=== PATIENT | female | born 1975 | race Caucasian/White ===

== ENCOUNTER 2024-01-21 19:24 | Emergency (ER) | payer SELFPAY ==
[~2024-01-21] VITALS: Ht 165.1 cm; Wt 72.0 kg
[2024-01-21 19:25] VITALS: O2SAT 97
[2024-01-21 20:19] LABS: CHLORIDE 104 mEq/L (98-107); POTASSIUM 3.7 mEq/L (3.5-5.1); SODIUM 141 mEq/L (136-145)
[2024-01-21 20:20] LABS: CARBON DIOXIDE 24 mEq/L (21-32)
[2024-01-21 20:21] LABS: CALCIUM 10.2 mg/dL (8.7-10.4)
[2024-01-21 20:25] LABS: CREATININE 0.6 mg/dL (0.6-1.0); GLUCOSE 218 mg/dL (70-105)
[2024-01-21 20:29] LABS: TROPONIN I HIGH SENSITIVITY < 4 ng/L (3.0-34); UREA NITROGEN BLOOD < 5 mg/dL (9-23)
[2024-01-21 20:32] LABS: BASOPHILS % 0.2 % (0.0-2.0); DIFFERENTIAL COMMENT 0; EOSINOPHILS % 1.1 % (0.0-5.0); HEMATOCRIT. 37.8 % (36.0-48.0); HEMOGLOBIN. 11.9 g/dL (12.0-16.0); LYMPHOCYTES % 50.4 % (20.0-50.0); MEAN CORPUSCULAR HEMOGLOBIN 24.1 pg (28.0-32.0); MEAN CORPUSCULAR HGB CONC 31.6 g/dL (31.0-37.0); MEAN CORPUSCULAR VOLUME 76.4 fL (81.0-99.0); MEAN PLATELET VOLUME 7.8 fl (7.4-10.4); MONOCYTES % 4.7 % (2.0-8.0); NEUTROPHILS % 43.6 % (40.0-76.0); PLATELET 374 x1000/uL (130-400); RED BLOOD CELL COUNT 4.95 mill/uL (4.2-5.4); RED CELL DISTRIBUTION WIDTH 18.8 % (11.6-14.6); WHITE BLOOD COUNT 8.3 x1000/uL (4.5-11.0)
[2024-01-21 20:35] LABS: ETHANOL BLOOD 341 mg/dL (<10)
[2024-01-21 20:53] LABS: HCG SCREEN NEGATIVE
[2024-01-21 21:56] VITALS: BP 128/77; PULSE 98; RESP 22; TEMP 37.00296; O2SAT 100
== END 2024-01-21 22:51 | disposition home or self-care (01) ==
LOC: ER 19:24
DX: R55 Syncope and collapse (principal); E11.9 Type 2 diabetes mellitus without complications
CPT/HCPCS: 36415; 71045; 80048; 80320; 83880; 84484; 84703; 85025; 93005; 99285; G0480